=== PATIENT | female | born 1975 | race Caucasian/White ===

== ENCOUNTER 2017-01-22 13:42 | Inpatient (IN) | payer MEDICAID ==
[~2017-01-22] VITALS: Ht 167.6 cm; Wt 84.8 kg
[2017-01-22 13:49] VITALS: BP 116/75
[2017-01-22] MEDS ORDERED: NACL 0.9% 1,000 ML IV SCH ×2 (13:57→15:04)
[2017-01-22 14:35] LABS: PARTIAL THROMBOPLASTIN TIME 25.9 secs (22-35.6); PROTHROMBIN TIME 10.3 secs (10.8-13.4)
[2017-01-22 14:36] LABS: HEMATOCRIT 25.1 % (36-48); MEAN CORPUSCULAR HEMOGLOBIN 15 pg (27-31); MEAN CORPUSCULAR HGB CONC 27 g/dL (33-37); MEAN CORPUSCULAR VOLUME 55 fL (80-94); PLATELET COUNT (AUTO) 335 K/uL (140-450); RED BLOOD CELL COUNT(AUTO) 4.54 MIL/uL (4.20-5.40); RED CELL DISTRIBUTION WIDTH 20.2 % (11.6-13.7); WHITE BLOOD COUNT (AUTO) 6.7 K/uL (4.8-10.8)
[2017-01-22 14:38] LABS: ALBUMIN 3.5 g/dL (3.4-5.0); ANION GAP 7.4 (8-16); CALCIUM 8.2 mg/dL (8.5-10.1); CREATININE 0.8 mg/dL (0.6-1.3); HEMOGLOBIN 6.8 g/dL (12.0-16.0); POTASSIUM 3.4 mmol/L (3.5-5.1); TOTAL BILIRUBIN 0.3 mg/dL (0.0-1.0); TOTAL PROTEIN, SERUM 7.8 g/dL (6.4-8.2)
[2017-01-22 14:51] LABS: BAND % (MANUAL) 4 % (0-8); NEUTROPHILS % (MANUAL) 62 (43-65)
[2017-01-22 14:52] LABS: ANISOCYTOSIS 1+; EOSINOPHILS % (MANUAL) 2 % (0-4); HYPOCHROMASIA 3+; LYMPHOCYTES % (MANUAL) 28 % (20-46); MONOCYTES % (MANUAL) 4 % (5-12); OVALOCYTES 1+; PLATELET ESTIMATE ADEQUATE
[2017-01-22] MEDS ORDERED: DOCUSATE SODIUM 100 MG GELCAP PO PRN (15:05)
[2017-01-22] MEDS ORDERED: ONDANSETRON 4 MG/2 ML VIAL IM/IVP PRN (15:05)
[2017-01-22] MEDS ORDERED: MORPHINE SULFATE 2 MG/ML SYR IVP PRN (15:05)
[2017-01-22 15:33] LABS: APPEARANCE,URINE HAZY (CLEAR); BILIRUBIN,URINE NEGATIVE (NEGATIVE); BLOOD, URINE 3+ (NEGATIVE); COLOR,URINE YELLOW (YELLOW); LEUKOCYTE ESTERASE ,URINE NEGATIVE (NEGATIVE); NITRITE, URINE NEGATIVE (NEGATIVE); PH,URINE 7.5 (5.0-9.0); PROTEIN,URINE NEGATIVE (NEGATIVE); UGLUCOSE NEGATIVE (NEGATIVE); UROBILINOGEN,URINE 0.2 EU/dL (0.2 - 1)
[2017-01-22 15:39] LABS: AMPHETAMINE, URINE POS. ng/ml (NEG <=1000); BARBITURATE, URINE NEG. ng/ml (NEG <=200); BENZODIAZEPINE, URINE NEG. ng/mL (NEG <=200); CANNABINOID, URINE NEG. ng/mL (NEG <=50); COCAINE, URINE NEG. ng/mL (NEG <=300); OPIATE, URINE NEG. ng/mL (NEG <=2000); PHENCYCLIDINE SCREEN,URINE NEG. ng/mL (NEG <=25)
[2017-01-22 15:40] LABS: BACTERIA,URINE FEW /HPF (None Seen); WBC,URINE 0-5 /HPF (0-5)
[2017-01-22 15:41] LABS: URINE AMORPHOUS PHOSPHATES 3+ /HPF (None Seen)
[2017-01-22] MEDS ORDERED: POTASSIUM CHLORIDE 10 MEQ TABER PO SCH (17:19)
[2017-01-22] MEDS: FERROUS SULFATE 325 MG TABEC PO SCH (17:36)
[2017-01-22 17:37] LABS: CHOL/HDL RATIO 2.3 (1-4.5); FREE T4 (FREE THYROXINE) 0.8 ng/dL (0.76-1.46); PHOSPHORUS 3.1 mg/dL (2.5-4.9); THYROID STIMULATING HORMONE 1.98 uIU/mL (0.34-3.74)
[2017-01-22 20:00] VITALS: BP 127/65
[2017-01-22 23:03] LABS: RED BLOOD CELL COUNT(AUTO) 4.04 MIL/uL (4.20-5.40); WHITE BLOOD COUNT (AUTO) 4.9 K/uL (4.8-10.8)
[2017-01-22 23:04] LABS: HEMOGLOBIN 6.2 g/dL (12.0-16.0)
[2017-01-22 23:05] LABS: HEMATOCRIT 18.6 % (36-48); MEAN CORPUSCULAR HEMOGLOBIN 15 pg (27-31); MEAN CORPUSCULAR HGB CONC 28 g/dL (33-37); MEAN CORPUSCULAR VOLUME 55 fL (80-94); PLATELET COUNT (AUTO) 285 K/uL (140-450); RED CELL DISTRIBUTION WIDTH 20.3 % (11.6-13.7)
[2017-01-22 23:06] LABS: BAND % (MANUAL) 2 % (0-8); NEUTROPHILS % (MANUAL) 64 (43-65)
[2017-01-22 23:07] LABS: ANISOCYTOSIS 1+; EOSINOPHILS % (MANUAL) 2 % (0-4); HYPOCHROMASIA 1+; LYMPHOCYTES % (MANUAL) 27 % (20-46); MONOCYTES % (MANUAL) 5 % (5-12)
[2017-01-22] MEDS ORDERED: FERRIC GLUCONATE 125 MG in NACL 0.9% 100 ML IV SCH (23:15)
[2017-01-23] VITALS: BP 121/73
[2017-01-23] MEDS ORDERED: FERRIC GLUCONATE 62.5 MG/5 ML AMP IV ONE (00:09)
[2017-01-23 04:00] VITALS: BP 140/72
[2017-01-23 06:24] LABS: HEMATOCRIT 23.4 % (36-48); MEAN CORPUSCULAR VOLUME 55 fL (80-94); RED BLOOD CELL COUNT(AUTO) 4.27 MIL/uL (4.20-5.40)
[2017-01-23 06:27] LABS: MEAN CORPUSCULAR HEMOGLOBIN 15 pg (27-31); MEAN CORPUSCULAR HGB CONC 28 g/dL (33-37); PLATELET COUNT (AUTO) 298 K/uL (140-450); RED CELL DISTRIBUTION WIDTH 20.7 % (11.6-13.7); WHITE BLOOD COUNT (AUTO) 4.1 K/uL (4.8-10.8)
[2017-01-23 06:30] LABS: CALCIUM 7.8 mg/dL (8.5-10.1); CREATININE 0.6 mg/dL (0.6-1.3)
[2017-01-23 06:34] LABS: HEMOGLOBIN 6.6 g/dL (12.0-16.0)
[2017-01-23 06:36] LABS: HEMOGLOBIN A1C 5.2 % (4.8-5.6); T4 (THYROXINE) 6.4 ug/dL (4.5-12.0)
[2017-01-23 06:39] LABS: ANION GAP 10.3 (8-16); CARBON DIOXIDE 26.4 mmol/L (21-32); POTASSIUM 3.7 mmol/L (3.5-5.1)
[2017-01-23 06:42] LABS: PHOSPHORUS 3.1 mg/dL (2.5-4.9)
[2017-01-23 07:11] LABS: ANISOCYTOSIS 1+; BAND % (MANUAL) 2 % (0-8); EOSINOPHILS % (MANUAL) 11 % (0-4); HYPOCHROMASIA 1+; LYMPHOCYTES % (MANUAL) 38 % (20-46); MONOCYTES % (MANUAL) 4 % (5-12); NEUTROPHILS % (MANUAL) 45 (43-65)
[2017-01-23 08:00] VITALS: BP 128/74
[2017-01-23 08:53] LABS: FERRITIN 3 ng/mL (15 - 150); TRANSFERRIN 372 mg/dL (200 - 370)
[2017-01-23] MEDS ORDERED: ASCORBIC ACID 500 MG TAB PO SCH (09:00)
[2017-01-23] MEDS ORDERED: MULTIVITAMIN 1 TAB PO SCH (09:00)
[2017-01-23] MEDS: FERROUS SULFATE 325 MG TABEC PO SCH (09:22)
[2017-01-23] MEDS ORDERED: FERRIC GLUCONATE 125 MG in NACL 0.9% 100 ML IV SCH (23:30)
== END 2017-01-23 09:30 | disposition home or self-care (01) | DRG 532 ==
LOC: MED 13:42 → MTU 15:14
PROVIDERS: ADMIT Family Medicine; ATTEND Family Medicine
DX: N93.8 Other specified abnormal uterine and vaginal bleeding (principal); D62 Acute posthemorrhagic anemia; E83.51 Hypocalcemia; Z53.21 Procedure and treatment not carried out due to patient leaving prior to being seen by health care provider; F15.10 Other stimulant abuse, uncomplicated; E87.6 Hypokalemia; E66.8 Other obesity; Z68.30 Body mass index [BMI] 30.0-30.9, adult; Z88.6 Allergy status to analgesic agent; Z80.0 Family history of malignant neoplasm of digestive organs; Z80.49 Family history of malignant neoplasm of other genital organs; Z84.2 Family history of other diseases of the genitourinary system; Z98.51 Tubal ligation status
CPT/HCPCS: 36415; 71010; 80048; 80053; 80305; 81001; 81025; 82150; 82728; 83036; 83540; 83690; 83735; 83880; 84100; 84436; 84439; 84443; 84479; 85025; 85045; 85610; 85730; 86886; 86900; 86901; 87081; 93005; 96360; 99285; J2916; J7030; Q0092

== ENCOUNTER 2019-01-09 17:04 | Emergency (ER) | payer MEDICAID ==
[~2019-01-09] VITALS: Ht 167.6 cm; Wt 82.7 kg
[2019-01-09 17:17] VITALS: BP 111/76
--- NOTE | 2019-01-09 17:20 | NUR ---
BIB DAUGHTER. PT AAO X4 C/O CARLOS LOWER BACK PAIN X3 DAYS AND BURNING URINATION X1 WEEK. PT REPORTS FEVER YESTERDAY, CURRENT TEMP 96.4 TEMPORAL. PT DENIES FEVER, N/V/D, SOB. STEADY GAIT. ER TO EVALUATE PT.
--- NOTE | 2019-01-09 17:37 | NUR ---
DR BLANKENSHIP AT BEDSIDE FOR PT EVAL
[2019-01-09] MEDS ORDERED: cefTRIAXone 1,000 MG in LIDOCAINE MPF 1% - 5 mL VIAL 2.1 ML IM ONE (17:40)
[2019-01-09 17:48] VITALS: BP 111/76
--- NOTE | 2019-01-09 17:48 | NUR ---
DR BLANKENSHIP AT BEDSIDE FOR PT DISCHARGE
--- NOTE | 2019-01-09 17:48 | NUR ---
Patient discharged with v/s stable. Written and verbal after care instructions given and explained. Patient alert, oriented and verbalized understanding of instructions. Ambulatory with steady gait. All questions addressed prior to discharge. ID band removed. Patient advised to follow up with PMD. Rx of CIPRO, NAPROSYN given. Patient educated on indication of medication including possible reaction and side effects. Opportunity to ask questions provided and answered.
== END 2019-01-09 17:48 | disposition home or self-care (01) ==
LOC: MED 17:04
DX: N39.0 Urinary tract infection, site not specified (principal); Z88.6 Allergy status to analgesic agent
CPT/HCPCS: 81002; 81025; 96372; 99283; J0696; J2001